=== PATIENT | female | born 1955 | race Caucasian/White ===

== ENCOUNTER 2023-05-11 12:23 | Outpatient (CLI) | payer OTHER, SELFPAY ==
--- NOTE | 2023-05-11 13:00 | CRLHL7_ITS ---
For Patients: As a result of the Century Cures Act, medical imaging exams and procedure reports are released immediately into your electronic medical record. You may view this report before your referring provider. If you have questions, please contact your health care provider. BILATERAL SCREENING MAMMOGRAM WITH COMPUTER-AIDED DETECTION AND TOMOSYNTHESIS TECHNIQUE: CC and MLO views were obtained. These mammographic images have been obtained using full-field digital technique. These mammographic images were interpreted with the benefit of computer-aided detection. Breast Tomosynthesis was used in this interpretation. COMPARISON FILM: 07/03/21, 10/29/18, 10/13/17. FINDINGS: The breasts are heterogeneously dense, which may obscure small masses IMPRESSION: There is no radiographic evidence for malignancy. ASSESSMENT: BI-RADS Category 2: Benign RECOMMENDATION: Routine screening mammogram in 1 year. A lay language report of this examination will be provided to the patient. Bernardo Rojas M.D. Diagnostic Radiologist [email or web address] TYE/idalia / be/Dictated by: Bernardo Rojas MD @ 05/12/2023 9:07:00 AM (Electronically Signed)
== END 2023-05-11 12:24 | disposition home or self-care (01) ==
LOC: MAMMO 12:24
PROVIDERS: PCP Family Medicine; Visit Provider Family Medicine
DX: Z12.31 Encounter for screening mammogram for malignant neoplasm of breast (principal); R92.2 Inconclusive mammogram
CPT/HCPCS: 77063; 77067

== ENCOUNTER 2023-12-29 10:44 | Outpatient (RCR) | payer MEDICARE, SELFPAY ==
--- NOTE | 2023-12-29 13:51 | PT.OPEX ---
PT [place] Outpatient Eval PT [facility] Outpatient Eval Start: 12/29/23 07:58 Freq: Status: Active Protocol: Document 12/29/23 07:58 AMS (Rec: 12/29/23 12:56 AMS [id number]) E-signed By Archana Luke, PT Physical Therapy Outpatient Evaluation Insurance Information Recert Due Date 03/23/24 Insurance Name Medicare B,are Medical Diagnosis Right knee osteoarthritis S/p right total knee arthroplasty 02/02/24, pre-op only Treating Diagnosis Aftercare following joint replacement Right knee pain/stiffness Muscle weakness Difficulty walking Referring MD Clark Subjective Subjective Mel is a new patient in my office today. She is a pleasant 68yr old female. Previous Dr. Miranda patient. Presents with pain in both knees, right greater than left . She reports intermittent pain over the last several years which has been progressive. There was a marked amount of pain at night . She describes pain on the inside part of both knees. She has tried a self-directed, home exercise program, Tylenol and anti- inflammatories. She had a cortisone injection in 2020. She has never had surgery on either knee. She does not have diabetes, does not smoke cigarettes and is not on blood thinners. -Dr. Clark, , confirmed by patient Pt presents one month prior to right total knee arthroplasty for pre-operative appointment . The date of her surgery changed. She does exercise/ stretching classes a few times a week through [employer]. She would like to get back to this. She does not use any gait aid at baseline. Localizes pain to the medial knee and increases with weightbearing activities. She will be doing her post-op physical therapy at [facility] in [place] (one block from her house). * home set up: please see pre- op note. Lives alone on 2nd floor of 2-level [facility] with 12 stairs to second floor, one railing on right. Kitchen on main level/laundry, all other necessities on 2nd floor . * equipment: able to borrow FWW after surgery. Does not use AD at baseline. * caregiver assistance: Neighbor, Joselito, lives downstairs on 1st floor and can stop in as needed. Daughter available to live with pt for a few days as needed and assist as needed. * pain level: see below * previous treatment: injection (some relief), takes Tylenol nightly for sleep, HEP * Goals: getting off floor without pain, returning to [employer] classes, walking * Functional limitations: walking, kneeling, sleeping, floor transfers, standing longer periods, stairs Pain Comments 5-8/10 pain at best/worst Date of Last Physician Visit 12/28/23 Date of Surgery (If applicable) 02/02/24 Current Work Status Retired Occupation Retired Precautions Treatment Precautions/Contraindications Possible osteoporosis (pt unsure), levothyroxine Weight Bearing Status Weight Bear as Tolerated Objective Other/Pertinent Objective Knee ROM L 0-0-130 R 0-0-125 Hip ROM WNL Strength: Hip flexors: R 4+/5 L 5/5 Knee extensors: R 4/5 with pain, L 5/5 Knee flexors: R 5/5 L 5/5 Gait/balance: Ambulates with normalized gait, non-antalgic. Lacks end-range active terminal knee extension bilaterally. Palpation/joint mobility: mild TTP over medial joint line/ just medial and lateral to tibial tuberosity along tibia. Swelling/observation: No swelling noted. Assessment Assessment/Impression Patient is a 68 year old female presenting for pre- operative visit prior to right total knee arthroplasty re- scheduled for 02/02/[address] Clark. Upon assessment, patient demonstrates mildly decreased knee ROM, decreased quad and hip strength, and altered gait. These impairments lead to difficulties with walking longer distances, kneeling, sleeping, floor transfers, standing longer periods, and stairs. Patient will be seen post operatively at [facility] in [place] to reassess impairments that will be addressed with skilled care. Mel would greatly benefit from skilled PT in order to progress strength, ROM, and ambulation post operatively in order to perform all household and work duties without significant difficulty or discomfort. Primary Functional Limitations walking, kneeling, sleeping, floor transfers, standing longer periods, stairs Plan of Care Rehabilitation Potential Good Physical Therapy Goals After pre-op visit: ? Patient will be independent with HEP ? Patient will verbalize knowledge of stair navigation and proper sequencing ? Patient will have knowledge on home adaptations and use of assistive devices post operatively ? Patient will have knowledge of edema management [facility] Coordination/Communication With Referral Source,Patient Caregiver Treatment Plan/Direct Interventions Gait Training,Joint Mobilization,Manual Therapy, Neuromuscular Re-ed, Therapeutic Activities, Therapeutic Exercises Frequency/Duration Frequency/duration: ? 1x visit prior to surgery on 02/02/24. Patient scheduled to start outpatient PT s/p TKA on 02/05/24 at [facility] in [place]. Has HEP to start with pre-operatively. Patient Will Be Discharged From Therapy Completion of LTG(s), Independent w/HEP, Independently Progressing Evaluation Billing Untimed Code Treatment Minutes 15 Complexity Low Certification Information Initial Certification Date 12/29/23 Ending Certification Date 03/23/24 Provider Signature Shows Agreement With POC & Medical Necessity Physician Signature & Date Requested Please Sign/Date Here Physician Comment/Change : Physician NPI Number #
== END 2024-04-27 23:59 | disposition home or self-care (01) ==
PROVIDERS: PCP Family Medicine; Visit Provider Orthopaedic Surgery
DX: M17.11 Unilateral primary osteoarthritis, right knee (principal); Z51.89 Encounter for other specified aftercare; M62.81 Muscle weakness (generalized); R26.2 Difficulty in walking, not elsewhere classified; M25.561 Pain in right knee; M25.661 Stiffness of right knee, not elsewhere classified; Z47.1 Aftercare following joint replacement surgery
CPT/HCPCS: 97110; 97161

== ENCOUNTER 2024-01-20 10:57 | Outpatient (CLI) | payer MEDICARE, SELFPAY | END 2024-01-20 10:58 | disposition home or self-care (01) | LOC: LKVREF 10:58 | PROVIDERS: PCP Family Medicine; Visit Provider Family Medicine | DX: Z01.818 Encounter for other preprocedural examination (principal) | CPT/HCPCS: 80048 ==

== ENCOUNTER 2024-02-02 08:01 | Day surgery (SDC) | payer MEDICARE, SELFPAY ==
[2024-02-02] VITALS (22 sets, daily range): BP systolic 97–147; BP diastolic 51–99; PULSE 58–90; RESP 16–18; TEMP 35.6–36.9; O2SAT 91–99; BMI 35.1
[2024-02-02] MEDS: LACTATED RINGERS 1000 ML 1,000 ML 100 ML IV ×2 (09:00→11:40)
[2024-02-02] MEDS: ACETAMINOPHEN 500 MG TABLET 1000 MG PO ×3 (09:01→23:30)
[2024-02-02] MEDS: OXYCODONE (CR) 10 MG TAB.ER.12H PO (09:02)
[2024-02-02] MEDS: CELECOXIB 200 MG CAPSULE PO (09:02)
[2024-02-02] MEDS: fentaNYL 100 MCG/2 ML inj IVP (10:02)
[2024-02-02] MEDS: MIDAZOLAM HCL 1 MG/ML inj IVP (10:02)
--- NOTE | 2024-02-02 10:08 | SUR.PREOP ---
TIME?OUT:?1000 PT/RN/MDA?VERIFICATION?OF?SURGICAL?SITE,?PROCEDURE,?AND?CONSENT OBTAINED?PRIOR?TO?INVASIVE?PROCEDURE.
--- NOTE | 2024-02-02 10:42 | W.PM.NB ---
Nerve Block Nerve Block Time Seen by Provider: 10:00 Date Seen: 02/02/24 Type of block requested by surgeon for post-operative analgesia: adductor canal Side: right Time out performed: Yes Verification of patient name: Yes Verification of date of : Yes Site marking: site marked Name of person performing procedure: ashley Continuous monitoring Was continuous monitoring of O2 sat, B/P, cardiac monitor technician, recorded every 15 minutes?: Yes Procedure Checklist: sterile prep, needles and gloves Ultrasound guided. Images saved: Yes Medications given in 5ml increments after negative aspiration: Ropivicaine %: 0.5 mL: 20 Needle gauge: 20 Decadron (mg): 10 Precedex (mcg): 25 Patient tolerated procedure well: Yes Block Charges Block Charge (with Pro Fee): Femoral Nerve Use of Ultrasound Machine for Block: Yes- US Guidance/pain block
--- NOTE | 2024-02-02 10:49 | P.NB_ITS ---
Nerve Block Nerve Block Time Seen by Provider: 10:00 Date Seen: 02/02/24 Type of block requested by surgeon for post-operative analgesia: geniculars Side: right Time out performed: Yes Verification of patient name: Yes Verification of date of : Yes Site marking: site marked Name of person performing procedure: ashley Continuous monitoring Was continuous monitoring of O2 sat, B/P, monitoring coordinator, recorded every 15 minutes?: Yes Procedure Checklist: sterile prep, needles and gloves Ultrasound guided. Images saved: No Medications given in 5ml increments after negative aspiration: Ropivicaine %: 0.5 mL: 12 Needle gauge: 25 Patient tolerated procedure well: Yes Block Charges Block Charge (with Pro Fee): Genicular Nerve Block Use of Ultrasound Machine for Block: No
[2024-02-02] MEDS: CEFAZOLIN 2 GM INJ IVP (11:39)
[2024-02-02] MEDS: TRANEXAMIC ACID 100 MG/ML INJ 1000 MG IV (11:40)
--- NOTE | 2024-02-02 12:53 | XR_ITS ---
Patient: NATHANIEL GLEN ARBOR Facility:?[facility] Patient ID:?[id number] Site Patient ID:?[id number]. Site :?[id number] Study:?XRay-Extremity Right 2V KNEE-02/02/2024 2:11:48 PM Ordering Physician:?DR. MARTE Final Report: INDICATION: Postop right knee was acute. TECHNIQUE: Two views of the right knee. FINDINGS: There is a right TKA. Components appear well seated. Adjacent postop soft tissue air. Dictated by Leonidas Tompkins MD @ 02/03/2024 10:08:55 AM Signed by:?Leonidas Tompkins MD @02/03/2024 10:08:55 AM (Electronic Signature)
--- NOTE | 2024-02-02 12:57 | PM.ORPRC ---
Procedure Note Date of procedure: 02/02/24 Procedure: PREOPERATIVE DIAGNOSIS: Right knee osteoarthritis POSTOPERATIVE DIAGNOSIS: Right knee osteoarthritis NAME OF OPERATION: Right total knee arthroplasty SURGEON: Olaf Clark MD MANAGER CLIENT: ROSANGELA Raymundo ANESTHESIA: Spinal ESTIMATED BLOOD LOSS: 0 mL COMPLICATIONS: None SPECIMENS: None DRAINS: None PREOPERATIVE ANTIBIOTICS: Ancef 2 grams, antibiotic impregnated cement IMPLANTS: 1. J&J Attune #6 posterior stabilized femur 2. # 5 revision CRS fixed-bearing tibia, with a 14 mm x 50 mm cemented stem 3. #6 posterior stabilized, 6 mm fixed-bearing polyethylene 4. 38 patella INDICATIONS: The patient is a 68-year-old with a longstanding history of severe, unrelenting right knee pain secondary to end-stage (grade IV) right knee osteoarthritis. Despite appropriate nonoperative management, including activity modification, anti-inflammatories, [id number] pain medication, bracing, physical therapy, and injections they continue to have pain and disability. Operative intervention was offered. The risks, benefits and expected outcomes were discussed in detail. These included but were not limited to: Infection, bleeding, injury to blood vessel or nerve, venous thromboembolism. All questions were answered to their satisfaction. Use of an office assistant receptionist was necessary throughout the case for patient positioning and safety, soft tissue retraction, and closure. A modifier 22 should be added to this case. Since the patient weighs 91 kg with a BMI of 35, we elected to use a stemmed component on the tibia to reduce the risk of aseptic loosening. This added more time and cost to the case. PROCEDURE: Spinal anesthesia was administered. The patient was placed supine on the operating table. The office assistant receptionist made sure the patient was positioned appropriately. The lower extremity was prepped and draped in the usual sterile fashion. The limb was exsanguinated with the Vasquez bandage. The pneumatic tourniquet was inflated to 300 mmHg. A standard anterior incision was made with the knee in flexion. Subcutaneous dissection was sharply taken through fascial layer #1. Full-thickness medial and lateral flaps were elevated. The office assistant receptionist retracted the soft tissues and protected them throughout the case. A standard subvastus approach was made. The patella was everted. The infrapatellar fat pad was preserved. The menisci and cruciate ligaments were sharply d?brided. Marginal osteophytes were d?brided with the rongeur. The drill was used to penetrate the femoral canal. The canal was aspirated and irrigated with pulse lavage. The intramedullary femoral guide was placed for a 5-degree valgus cut, removing 10 mm off the distal femur. The saw was used to make the cut. Whitesides line and the trans epicondylar axis were marked. The femoral sizing guide was pinned onto the distal femur. Three degrees of external rotation nicely parallels the transepicondylar axis. Pins were placed for posterior referencing. The four-in-one cutting guide was pinned onto the distal femur. The anterior, posterior, and chamfer cuts were made. The office assistant receptionist protected the collateral ligaments. The box cutting guide was pinned. The box cuts were made. The boxed trial was placed and was an excellent fit. Drill holes for the lugs were made. Attention was then turned to the proximal tibia. The extramedullary tibial guide was placed for a neutral varus/valgus cut with 5 degrees of posterior slope, removing 0 mm based off the medial tibial surface. The office assistant receptionist protected the collateral ligaments and the neurovascular bundle. The saw was used to make the cut. Trial components were placed. The knee was nicely balanced in both flexion and extension. The trial components were removed. The tray was placed in appropriate rotation, parallel to our tibial cutting pins. It was pinned by the office assistant receptionist and the drill x2 was used. The stemmed tibial trial was placed. The punch was used. The tray was removed. The punch was used again. A bone plug was placed in the femoral canal. Attention was then turned to the patella. Afognak patellar thickness was 21 mm. The lobster claw resection guide was used with the 7.5 mm pastora. The saw was used to make the cut. Drill holes were made by the office assistant receptionist. The trial was placed and was an excellent fit. Cancellous surfaces were irrigated with pulse lavage and thoroughly dried by the office assistant receptionist. We cemented the tibial component, then the femoral component. We impacted the 6 mm polyethylene onto the tibial tray. The knee was brought into full extension. We then cemented the patellar component. Excessive cement was removed. The cement was allowed to harden. The knee was taken through a range of motion and was found to be nicely balanced in both flexion and extension. The patella tracks centrally. The office assistant receptionist did a three minute dilute Betadine solution soak. The office assistant receptionist irrigated the wound with 3 liters of normal saline via pulse lavage. The office assistant receptionist reapproximated the extensor mechanism with #1 Vicryl in an interrupted [id number] fashion. The office assistant receptionist then ran the extensor mechanism with a #1 PDO Stratafix. The office assistant receptionist closed the subcutaneous tissues with a 3-0 Stratafix and the skin with a running 3-0 Stratafix in a subcuticular fashion. Glue was used to seal the skin. The office assistant receptionist placed a dry dressing, GABRIELA stocking, and Polar Care. Sponge and needle counts were correct x2. The patient tolerated the procedure well. There were no apparent complications. They were carefully transferred to the hospital bed and taken to the postanesthesia care unit in satisfactory condition. PLAN: The patient will be mobilized with physical therapy. Aspirin will be used for DVT prophylaxis. They will be discharged to home once medically appropriate.
--- NOTE | 2024-02-02 14:24 | PM.IMCN1 ---
Date of Consult Patient: [facility] Patient Consult date: 02/02/24 Requesting Physician: Orthopedics Primary Care Provider: Сергей Rao MD Consult Narrative Reason for consult: hypothyroidism Narrative: Mel Plascencia is a 68 year old female went in elective right total knee arthroplasty today by Dr. Clark for severe osteoarthritis. She has had no other surgeries in her life. She is doing well postoperatively and is just now starting to have a little bit of pain, 2/. Her only other medical problem is hypothyroidism for which she takes levothyroxine. She had an upper respiratory illness last week that is mostly resolved, but she does note some ongoing nasal congestion, not worse now than it was before surgery. Review of Systems Status of ROS: Reports: 10 or more systems reviewed and unremarkable except as noted in History and below PFSH [facility] Medical History (Updated 02/02/24 @ 15:39 by Ivette Mckenzie MD) Hypothyroidism ?E03.9 - Hypothyroidism, unspecified (ICD-10) Family history of heart disease ?Z82.49 - Family history of ischemic heart disease and other diseases of the circulatory system (ICD-10) Family history of breast cancer ?Z80.3 - Family history of malignant neoplasm of breast (ICD-10) Osteoarthritis of left knee ?M17.12 - Unilateral primary osteoarthritis, left knee (ICD-10) Osteoarthritis of right knee ?M17.11 - Unilateral primary osteoarthritis, right knee (ICD-10) Obesity ?E66.9 - Obesity, unspecified (ICD-10) Impingement syndrome of both shoulders ?M75.41 - Impingement syndrome of right shoulder (ICD-10) ?M75.42 - Impingement syndrome of left shoulder (ICD-10) Olecranon bursitis of left elbow ?M70.22 - Olecranon bursitis, left elbow (ICD-10) Surgical History (Updated 02/02/24 @ 15:41 by Ivette Mckenzie MD) S/P total knee arthroplasty ?Z96.659 - Presence of unspecified artificial knee joint (ICD-10) Family History (Updated 02/02/24 @ 15:37 by Ivette Mckenzie MD) Other Breast cancer Cardiovascular disease Colonic polyp Social History (Updated 02/02/24 @ 15:38 by Ivette Mckenzie MD) Narrative: She lives independently. 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 Her daughter, Linda, is with her today and is planning on being there to care for Mel at home when she is discharged tomorrow. Mel is a lifelong nonsmoker, denies alcohol or recreational drug use. Smoking Status: Never smoker Do you use any of these nicotine containing products: None Second hand tobacco smoke exposure: No Little interest or pleasure in doing things: not at all Feeling down, depressed, or hopeless: not at all Meds Home Medications and Allergies Home Medications Medication Instructions Recorded Confirmed Type levothyroxine 25 mcg tablet 25 mcg PO DAILY 02/02/24 02/02/24 History Allergies Allergy/AdvReac Type Severity Reaction Status Date / Time No Known Allergies Allergy Unknown Unknown Verified 02/02/24 08:53 Exam Narrative: Exam Narrative: General: No acute distress. Awake alert oriented x3. HEENT: Normocephalic atraumatic, pupils equally round and reactive to light and accommodation. Oropharynx clear. Mucous membranes are moist. Cardiovascular: Regular rate and rhythm. No murmurs, gallops, or rubs. Chest: No increased work of breathing. Clear to auscultation bilaterally. No crackles or wheezes. Abdomen: Bowel sounds present. Soft, nondistended, nontender. No hepatosplenomegaly or masses. Extremities: Right knee bandage is clean, dry, and intact. No edema, no cyanosis or clubbing. Skin: No jaundice, no pallor, no rashes on visible skin. Const: Vital Signs, click to edit/add: Vital Signs - 24 hr 02/02/24 08:48 02/02/24 10:00 02/02/24 10:15 Temperature 98.5 F 98.2 F Pulse Rate 78 70 63 Respiratory Rate 16 16 16 Blood Pressure 147/78 H 127/99 H 126/75 Pulse Oximetry 96 99 99 Oxygen Delivery Me thod Nasal Cannula Nasal Cannula Oxygen Flow Rate 2 2 02/02/24 10:30 02/02/24 13:37 02/02/24 13:40 Temperature 97.8 F Pulse Rate 58 L 78 75 Respiratory Rate 16 16 16 Blood Pressure 100/73 112/57 L 103/60 Pulse Oximetry 99 93 93 Oxygen Delivery Me thod Nasal Cannula Room Air Room Air Oxygen Flow Rate 2 2 02/02/24 13:45 02/02/24 13:50 02/02/24 13:55 Temperature Pulse Rate 76 73 72 Respiratory Rate 16 16 16 Blood Pressure 97/67 107/66 110/63 Pulse Oximetry 97 96 97 Oxygen Delivery Me thod Room Air Room Air Room Air Oxygen Flow Rate 2 02/02/24 14:00 02/02/24 14:05 Temperature 97.3 F L Pulse Rate 75 74 Respiratory Rate 16 16 Blood Pressure 112/57 L 109/62 Pulse Oximetry 97 97 Oxygen Delivery Me thod Room Air Room Air Oxygen Flow Rate Assessment and Plan Assessment and plan (1) S/P total knee arthroplasty: Problem comment: - 02/02/2024 Dr. Clark - routine postop cares - VTE prophylaxis with twice a day aspirin, Last's hose, and SCDs. Status: Acute (2) Osteoarthritis of right knee: Status: Chronic (3) Hypothyroidism: Problem comment: - continue home dosing of levothyroxine. She skipped her dose this morning, not sure if she should take before surgery. She would like to restart it tomorrow morning rather than taking a dose today. I will write to restart this medication tomorrow morning. Status: Chronic
[2024-02-02] MEDS: HYDROmorphone 0.5 mg/0.5 ml inj IVP (14:47)
[2024-02-02] MEDS: CEFAZOLIN 2 GM in 0.9 % SODIUM CHLORIDE Mini-bag 100 ML IVPB (18:15)
--- NOTE | 2024-02-02 19:25 | PC.NURSE ---
Pt arrived to floor from surgery at 1412; Pt?s VSS; Pt on RA. Pt had complaints of pain ranging from 1-4; see EMAR for intervention. Pt?s dressing is dry and intact. ?Family at bedside most of shift.
[2024-02-02] MEDS: OXYCODONE 5 MG TABLET PO ×2 (21:13→23:30)
[2024-02-02] MEDS: ASPIRIN 81 MG TABLET EC PO (21:15)
[2024-02-02] MEDS: SENNOSIDES 1 TAB TABLET 2 TAB PO (21:15)
[2024-02-03 03:00] VITALS: BP 118/74; PULSE 76; RESP 18; TEMP 36.6; O2SAT 96
[2024-02-03] MEDS: CEFAZOLIN 2 GM in 0.9 % SODIUM CHLORIDE Mini-bag 100 ML IVPB (03:48)
--- NOTE | 2024-02-03 06:22 | PC.NURSE ---
Shift note: Pt is doing with pain and ambulation with A, walker and GB. Pain has been rated between 4 and 6 and only requested for pain medication at 2300. Dressing appeared clean and dry. Vitally stable.
[2024-02-03] MEDS: ACETAMINOPHEN 500 MG TABLET 1000 MG PO (06:30)
[2024-02-03] MEDS: LEVOTHYROXINE 25 MCG TABLET PO (06:30)
[2024-02-03 06:39] LABS: Basophils Percent Auto 0.1 % (0.0-3.0); Hematocrit 38.5 % (33.0-51.0); Hemoglobin* 12.7 gm/dL (12.0-16.0); Immature Granulocytes Pct Auto 0.2 %; Lymphocytes Percent Auto 7.3 % (20-44); Mean Corpuscular HGB Conc 33 gm/dL (32-36); Mean Corpuscular Hemoglobin 31 pg (26-34); Mean Corpuscular Volume 92 fL (80-100); Monocytes Percent Auto 2.9 % (0.0-11.0); Neutrophils Percent Auto 89.5 % (42.0-72.0); Platelet Count* 260 K/uL (140-440); RDW Coefficient of Variation % 12.1 % (11.5-15.5); Red Blood Count 4.17 m/uL (4.00-5.20); White Blood Count* 16.14 K/uL (4.50-11.00)
[2024-02-03 06:49] LABS: Slide Review Reflex No
[2024-02-03 07:02] LABS: Potassium* 4.6 mmol/L (3.6-5.1); Sodium* 138 mmol/L (135-149)
[2024-02-03 07:05] LABS: Creatinine* 0.8 mg/dL (0.5-1.5); Est. Creatinine Clearance* 44.54; Estimated Glomerular Filt Rate 80 ml/min; INR 0.97 (0.91-1.10); Prothrombin Time 13.5 Seconds
[2024-02-03 07:06] LABS: Blood Urea Nitrogen* 26 mg/dL (7-30)
[2024-02-03 07:59] VITALS: BP 119/57; PULSE 75; RESP 18; TEMP 37; O2SAT 95
--- NOTE | 2024-02-03 08:32 | PM.ORPN ---
Subjective Subjective Time Seen by Provider: 07:00 Date Seen: 02/03/24 Principal diagnosis: Status post right knee replacement Interval history: The patient is comfortable this morning. She will discharge to home today. Ortho Exam Narrative Exam Narrative: Alert and oriented x3. Patient is in no acute distress. Converses without labored breathing. Hearing is grossly intact. Ambulates with a walker. Examination of the right knee shows the dressing is intact. No erythema or warmth or sign of infection. Minimal effusion. Bilateral calves are soft and nontender. CMS intact right lower extremity. Good quad strength Const Vital Signs, click to edit/add: Vital Signs - 24 hr 02/02/24 08:48 02/02/24 10:00 02/02/24 10:15 Temperature 98.5 F 98.2 F Pulse Rate 78 70 63 Pulse Rate [Left Pulse Oximeter] Respiratory Rate 16 16 16 Blood Pressure 147/78 H 127/99 H 126/75 Blood Pressure [Right Arm] Pulse Oximetry 96 99 99 Oxygen Delivery Method Nasal Cannula Nasal Cannula Oxygen Flow Rate 2 2 02/02/24 10:30 02/02/24 13:37 02/02/24 13:40 Temperature 97.8 F Pulse Rate 58 L 78 75 Pulse Rate [Left Pulse Oximeter] Respiratory Rate 16 16 16 Blood Pressure 100/73 112/57 L 103/60 Blood Pressure [Right Arm] Pulse Oximetry 99 93 93 Oxygen Delivery Method Nasal Cannula Room Air Room Air Oxygen Flow Rate 2 2 02/02/24 13:45 02/02/24 13:50 02/02/24 13:55 Temperature Pulse Rate 76 73 72 Pulse Rate [Left Pulse Oximeter] Respiratory Rate 16 16 16 Blood Pressure 97/67 107/66 110/63 Blood Pressure [Right Arm] Pulse Oximetry 97 96 97 Oxygen Delivery Method Room Air Room Air Room Air Oxygen Flow Rate 2 02/02/24 14:00 02/02/24 14:05 02/02/24 14:12 Temperature 97.3 F L 96.1 F L Pulse Rate 75 74 72 Pulse Rate [Left Pulse Oximeter] Respiratory Rate 16 16 16 Blood Pressure 112/57 L 109/62 119/78 Blood Pressure [Right Arm] Pulse Oximetry 97 97 96 Oxygen Delivery Method Room Air Room Air Room Air Oxygen Flow Rate 0 02/02/24 14:15 02/02/24 14:30 02/02/24 14:45 Temperature 96.4 F L 96.4 F L 96.5 F L Pulse Rate 74 70 73 Pulse Rate [Left Pulse Oximeter] Respiratory Rate 16 16 16 Blood Pressure 125/61 116/68 114/51 L Blood Pressure [Right Arm] Pulse Oximetry 96 94 95 Oxygen Delivery Method Room Air Room Air Room Air Oxygen Flow Rate 0 0 0 02/02/24 15:00 02/02/24 15:30 02/02/24 16:00 Temperature 96.5 F L 97.0 F L 97.1 F L Pulse Rate 74 74 83 Pulse Rate [Left Pulse Oximeter] Respiratory Rate 18 16 18 Blood Pressure 114/59 L 126/72 126/72 Blood Pressure [Right Arm] Pulse Oximetry 91 98 97 Oxygen Delivery Method Room Air Room Air Room Air Oxygen Flow Rate 0 0 0 02/02/24 17:00 02/02/24 18:00 02/02/24 19:00 Temperature 96.8 F L 97.3 F L 97.1 F L Pulse Rate 77 90 75 Pulse Rate [Left Pulse Oximeter] Respiratory Rate 16 16 16 Blood Pressure 126/86 125/64 133/89 Blood Pressure [Right Arm] Pulse Oximetry 98 96 96 Oxygen Delivery Method Room Air Room Air Room Air Oxygen Flow Rate 0 0 0 02/02/24 23:36 02/03/24 03:00 02/03/24 07:59 Temperature 97.6 F 97.8 F 98.6 F Pulse Rate Pulse Rate [Left Pulse Oximeter] 85 76 75 Respiratory Rate 18 18 18 Blood Pressure Blood Pressure [Right Arm] 137/76 118/74 119/57 L Pulse Oximetry 96 96 95 Oxygen Delivery Method Room Air Room Air Room Air Oxygen Flow Rate 0 Assessment and Plan Assessment and plan (1) Status post right knee replacement: Problem details: 02/02/2024 Status: Acute Assessment and Plan: Plan for discharge is today to home if they meet discharge criteria. DVT prophylaxis includes aspirin 81 mg twice daily x1 month, Last stockings x1 month may remove for 1 hr per day, frequent ambulation Remove dressing in 1 week. Observe wound and phone Orthopedics with any questions or concerns Return to clinic in 1 week for a wound check Return to clinic in 6 weeks with surgeon Minimize narcotic use. Wean off and discontinue soon as possible. Activities as tolerated. No strenuous activity. Outpatient physical therapy as scheduled. Ice and elevate the operative extremity. No restriction on ice.
[2024-02-03] MEDS: ASPIRIN 81 MG TABLET EC PO (08:37)
[2024-02-03] MEDS: SENNOSIDES 1 TAB TABLET 2 TAB PO (08:37)
[2024-02-03] MEDS: OXYCODONE 5 MG TABLET PO (08:37)
--- NOTE | 2024-02-03 11:02 | PC.NURSE ---
Pt alert and oriented. Pt pleasant and cooperative. Pt had no complaints of pain. Pt's dressing dry and intact. Pt SBA with walker and gait belt. Pt's IV removed; catheter intact. Discharge instructions done with Pt and daughter.
--- NOTE | 2024-02-22 13:20 | W.ANESCHARGE ---
Anesthesia Charges Start Date/Time Anesthesia Start Date: 02/02/24 Anesthesia Start Time: 11:23 Stop Date/Time Anesthesia Stop Date: 02/02/24 Anesthesia Stop Time: 13:40
== END 2024-02-03 10:45 | disposition home or self-care (01) ==
LOC: OR 08:01 → MEDSURG 08:05
PROVIDERS: PCP Family Medicine; Visit Provider Orthopaedic Surgery
PROC: (CPT 27447; principal; 2024-02-02 10:00)
DX: M17.11 Unilateral primary osteoarthritis, right knee (principal); G89.18 Other acute postprocedural pain; E03.9 Hypothyroidism, unspecified; E66.9 Obesity, unspecified; Z68.35 Body mass index [BMI] 35.0-35.9, adult
CPT/HCPCS: 27447; 01402; 36415; 64447; 64454; 73560; 76942; 82565; 84132; 84295; 84520; 85025; 85610; 97110; 97116; 97161; 97165; 97530; A9270; C1776; J0690; J1100; J1170; J2250; J2371; J2405; J2704; J2795; J3010; J7120

== ENCOUNTER 2024-12-06 15:58 | Outpatient (CLI) | payer MEDICARE, SELFPAY ==
--- NOTE | 2024-12-06 16:40 | CRLHL7_ITS ---
For Patients: As a result of the Cures Act, medical imaging exams and procedure reports are released immediately into your electronic medical record. You may view this report before your referring provider. If you have questions, please contact your health care provider. BILATERAL SCREENING MAMMOGRAM WITH COMPUTER-AIDED DETECTION AND TOMOSYNTHESIS TECHNIQUE: CC and MLO views were obtained. These mammographic images have been obtained using full-field digital technique. These mammographic images were interpreted with the benefit of computer-aided detection. Breast Tomosynthesis was used in this interpretation. COMPARISON FILM: 05/11/23, 07/03/21, 10/29/18. FINDINGS: There are scattered areas of fibroglandular density IMPRESSION: There is no radiographic evidence for malignancy. ASSESSMENT: BI-RADS Category 1: Negative RECOMMENDATION: Routine screening mammogram in 1 year. A lay language report of this examination will be provided to the patient. Bernardo Rojas M.D. Diagnostic Radiologist [email or web address] m Transcribed: 3:00 p.mGerardo salguero/Dictated by: Bernardo Rojas MD @ 12/07/2024 9:34:00 AM (Electronically Signed)
== END 2024-12-06 15:59 | disposition home or self-care (01) ==
LOC: MAMMO 15:59
PROVIDERS: PCP Family Medicine; Visit Provider Family Medicine
DX: Z12.31 Encounter for screening mammogram for malignant neoplasm of breast (principal)
CPT/HCPCS: 77063; 77067

== ENCOUNTER 2025-01-25 09:35 | Outpatient (CLI) | payer MEDICARE, SELFPAY | END 2025-01-25 09:36 | disposition home or self-care (01) | PROVIDERS: PCP Family Medicine; Visit Provider Family Medicine | DX: E03.9 Hypothyroidism, unspecified (principal); E66.9 Obesity, unspecified; Z13.0 Encounter for screening for diseases of the blood and blood-forming organs and certain disorders involving the immune mechanism; Z13.1 Encounter for screening for diabetes mellitus | CPT/HCPCS: 80048; 84439; 84443 ==

== ENCOUNTER 2025-02-08 10:13 | Outpatient (CLI) | payer MEDICARE, SELFPAY | END 2025-02-08 10:14 | disposition home or self-care (01) | LOC: LKVREF 10:13 | PROVIDERS: PCP Family Medicine; Visit Provider Family Medicine | DX: Z01.818 Encounter for other preprocedural examination (principal) | CPT/HCPCS: 80048 ==

== ENCOUNTER 2025-02-21 06:13 | Day surgery (SDC) | payer MEDICARE, SELFPAY ==
[2025-02-21] VITALS (21 sets, daily range): BP systolic 99–139; BP diastolic 60–101; PULSE 51–77; RESP 12–16; TEMP 35.9–36.7; O2SAT 93–100; BMI 37.4
[2025-02-21] MEDS: SODIUM CHLORIDE 0.9 % (FLUSH) 10 ML SYRINGE IVF (06:45)
[2025-02-21] MEDS: LACTATED RINGERS 1000 ML 1,000 ML 100 ML IV ×3 (06:45→11:28)
[2025-02-21] MEDS: ACETAMINOPHEN 500 MG TABLET 1000 MG PO (06:54)
[2025-02-21] MEDS: CELECOXIB 200 MG CAPSULE PO (06:54)
[2025-02-21] MEDS: OXYCODONE (CR) 10 MG TAB.ER.12H PO (06:54)
[2025-02-21] MEDS: fentaNYL 100 MCG/2 ML inj IVP (07:17)
[2025-02-21] MEDS: MIDAZOLAM HCL 1 MG/ML inj IVP (07:17)
--- NOTE | 2025-02-21 07:18 | SUR.PREOP ---
TIME?OUT:?0716 PT/RN/MDA?VERIFICATION?OF?SURGICAL?SITE,?PROCEDURE,?AND?CONSENT OBTAINED?PRIOR?TO?INVASIVE?PROCEDURE. all in agreement
[2025-02-21] MEDS: CEFAZOLIN 1 GM inj IVP (07:35)
[2025-02-21] MEDS: TRANEXAMIC ACID 100 MG/ML INJ 1000 MG IV (07:40)
--- NOTE | 2025-02-21 07:56 | P.NB_ITS ---
Nerve Block Nerve Block Time Seen by Provider: 07:20 Date Seen: 02/21/25 Type of block requested by surgeon for post-operative analgesia: adductor canal Side: left Time out performed: Yes Verification of patient name: Yes Verification of date of : Yes Site marking: site marked Name of person performing procedure: North Continuous monitoring Was continuous monitoring of O2 sat, B/P, youth nutritional monitor, recorded every 15 minutes?: Yes Procedure Checklist: sterile prep, needles and gloves Ultrasound guided. Images saved: Yes Medications given in 5ml increments after negative aspiration: Marcaine %: 0.25 mL: 15 Needle gauge: 20 Precedex (mcg): 25 Patient tolerated procedure well: Yes Block Charges Block Charge (with Pro Fee): Femoral Nerve Use of Ultrasound Machine for Block: Yes- US Guidance/pain block
--- NOTE | 2025-02-21 07:57 | P.NB_ITS ---
Nerve Block Nerve Block Time Seen by Provider: 07:20 Date Seen: 02/21/25 Type of block requested by surgeon for post-operative analgesia: geniculars Side: left Time out performed: Yes Verification of patient name: Yes Verification of date of : Yes Site marking: site marked Name of person performing procedure: North Continuous monitoring Was continuous monitoring of O2 sat, B/P, electronic device monitor, recorded every 15 minutes?: Yes Procedure Checklist: sterile prep, needles and gloves Ultrasound guided. Images saved: Yes Medications given in 5ml increments after negative aspiration: Marcaine %: 0.25 mL: 9 Needle gauge: 25 Patient tolerated procedure well: Yes Block Charges Block Charge (with Pro Fee): Genicular Nerve Block
--- NOTE | 2025-02-21 08:49 | CRLHL7_ITS ---
For Patients: As a result of the Century Cures Act, medical imaging exams and procedure reports are released immediately into your electronic medical record. You may view this report before your referring provider. If you have questions, please contact your health care provider. Indication: LT KNEE POSTOP TKA Technique: Two views left knee Findings/Impression: Hardware from a left total knee arthroplasty is in satisfactory position. Bone alignment is normal. No sign of acute fracture. Postop changes are within normal limits. Dictated by Bernardo Rojas MD @ 02/21/2025 10:55:06 AM (Electronically Signed)
--- NOTE | 2025-02-21 08:50 | P.ORPRC_ITS ---
Procedure Note Date of procedure: 02/21/25 Procedure: PREOPERATIVE DIAGNOSIS: Left knee osteoarthritis POSTOPERATIVE DIAGNOSIS: Left knee osteoarthritis NAME OF OPERATION: Left total knee arthroplasty SURGEON: Olaf Clark MD FLAVORING OIL FILTERER: ROSANGELA Raymundo Elizabeth Oss, MS4 ANESTHESIA: Spinal ESTIMATED BLOOD LOSS: 0 mL COMPLICATIONS: None SPECIMENS: None DRAINS: None PREOPERATIVE ANTIBIOTICS: Ancef 2 grams, antibiotic impregnated cement IMPLANTS: 1. J&J Attune # 5 posterior stabilized femur 2. # 5 revision CRS fixed-bearing tibia, 14 mm x 50 mm cemented stem 3. # 5 posterior stabilized, 5 mm fixed-bearing polyethylene 4. 38 patella INDICATIONS: The patient is a 69-year-old with a longstanding history of severe, unrelenting left knee pain secondary to end-stage (grade IV) left knee osteoarthritis. Despite appropriate nonoperative management, including activity modification, anti-inflammatories, [id number] pain medication, bracing, physical therapy, and injections they continue to have pain and disability. Operative intervention was offered. The risks, benefits and expected outcomes were discussed in detail. These included but were not limited to: Infection, bleeding, injury to blood vessel or nerve, venous thromboembolism. All questions were answered to their satisfaction. Use of an dental hygiene administrative assistant was necessary throughout the case for patient positioning and safety, soft tissue retraction, and closure. A modifier 22 should be added to the case. The patient's weight of 96 kg with a BMI of 37 increases her risk of aseptic loosening. In order to attempt to reduce this risk a stemmed tibial component was placed. This added time and cost to complete the case. PROCEDURE: Spinal anesthesia was administered. The patient was placed supine on the operating table. The dental hygiene administrative assistant made sure the patient was positioned appropriately. The lower extremity was prepped and draped in the usual sterile fashion. The limb was exsanguinated with the Vasquez bandage. The pneumatic tourniquet was inflated to 300 mmHg. A standard anterior incision was made with the knee in flexion. Subcutaneous dissection was sharply taken through fascial layer #1. Full-thickness medial and lateral flaps were elevated. The dental hygiene administrative assistant retracted the soft tissues and protected them throughout the case. A standard subvastus approach was made. The patella was subluxed. The infrapatellar fat pad was preserved. The menisci and cruciate ligaments were sharply d?brided. Marginal osteophytes were d?brided with the rongeur. The drill was used to penetrate the femoral canal. The canal was aspirated and irrigated with pulse lavage. The intramedullary femoral guide was placed for a 5-degree valgus cut, removing 10 mm off the distal femur. The saw was used to make the cut. Whitesides line and the trans epicondylar axis were marked. The femoral sizing guide was pinned onto the distal femur. Three degrees of external rotation nicely parallels the transepicondylar axis. Pins were placed for posterior referencing. The four-in-one cutting guide was pinned onto the distal femur. The anterior, posterior, and chamfer cuts were made. The dental hygiene administrative assistant protected the collateral ligaments. The box cutting guide was pinned. The box cuts were made. The boxed trial was placed and was an excellent fit. Drill holes for the lugs were made. Attention was then turned to the proximal tibia. The intramedullary tibial guide was placed for a neutral varus/valgus cut with 5 degrees of posterior slope, removing 0 mm based off the medial tibial surface. The dental hygiene administrative assistant protected the collateral ligaments and the neurovascular bundle. The saw was used to make the cut. Trial components were placed. The knee was nicely balanced in both flexion and extension. The trial components were removed. The tray was placed in appropriate rotation, parallel to our tibial cutting pins. It was pinned by the dental hygiene administrative assistant and the drill x2 was used. The stemmed tibial trial was placed. The punch was used. The tray was removed. The punch was used again. Attention was then turned to the patella. [place] patellar thickness was 21 mm. The lobster claw resection guide was used with the 7.5 mm pastora. The saw was used to make the cut. Drill holes were made by the dental hygiene administrative assistant. The trial was placed and was an excellent fit. Cancellous surfaces were irrigated with pulse lavage and thoroughly dried by the dental hygiene administrative assistant. We cemented the tibial component, then the femoral component. We impacted the 5 mm polyethylene onto the tibial tray. The knee was brought into full extension. We then cemented the patellar component. Excessive cement was removed. The cement was allowed to harden. The knee was taken through a range of motion and was found to be nicely balanced in both flexion and extension. The patella tracks centrally. The dental hygiene administrative assistant did a three minute dilute Betadine solution soak. The dental hygiene administrative assistant irrigated the wound with 3 liters of normal saline via pulse lavage. The dental hygiene administrative assistant reapproximated the extensor mechanism with #1 Vicryl in an interrupted [id number] fashion. The dental hygiene administrative assistant then ran the extensor mechanism with a #1 PDO Stratafix. The dental hygiene administrative assistant closed the subcutaneous tissues with a 3-0 Stratafix and the skin with a running 3-0 Stratafix in a subcuticular fashion. Glue was used to seal the skin. The dental hygiene administrative assistant placed a dry dressing. Sponge and needle counts were correct x2. The patient tolerated the procedure well. There were no apparent complications. They were carefully transferred to the hospital bed and taken to the postanesthesia care unit in satisfactory condition. PLAN: The patient will be mobilized with physical therapy. Aspirin will be used for DVT prophylaxis. They will be discharged to home once medically appropriate.
--- NOTE | 2025-02-21 09:21 | P.ANES_ITS ---
Anesthesia Charges Start Date/Time Anesthesia Start Date: 02/21/25 Anesthesia Start Time: 07:26 Stop Date/Time Anesthesia Stop Date: 02/21/25 Anesthesia Stop Time: 09:20 Coding CPT Codes CPT Codes: ANESTH KNEE ARTHROPLASTY - 17556 ([id number]) P2 - PATIENT W/MILD SYST DISEASE, QK - QM CONSULTANT 2-4 CNCRNT ANES PROC, QX - LOGISTICS CLERK SVC W/ MD MED DIRECTION
--- NOTE | 2025-02-21 09:21 | W.ANESCHARGE ---
Anesthesia Charges Start Date/Time Anesthesia Start Date: 02/21/25 Anesthesia Start Time: 07:26 Stop Date/Time Anesthesia Stop Date: 02/21/25 Anesthesia Stop Time: 09:20 Coding CPT Codes CPT Codes: ANESTH KNEE ARTHROPLASTY - 71621 ([id number]) P2 - PATIENT W/MILD SYST DISEASE, QK - ADZING AND BORING MACHINE FEEDER 2-4 CNCRNT ANES PROC, QX - BINGO WORKER SVC W/ MD MED DIRECTION
--- NOTE | 2025-02-21 09:26 | P.ANES_ITS ---
Anesthesia Charges Start Date/Time Anesthesia Start Date: 02/21/25 Anesthesia Start Time: 07:26 Stop Date/Time Anesthesia Stop Date: 02/21/25 Anesthesia Stop Time: 09:20 Coding CPT Codes CPT Codes: ANESTH KNEE ARTHROPLASTY - 59531 ([id number]) QK - WASTEWATER TREATMENT SUPERVISOR 2-4 CNCRNT ANES PROC, QX - ASSISTANT PRINCIPAL SVC W/ MD MED DIRECTION, P2 - PATIENT W/MILD SYST DISEASE
--- NOTE | 2025-02-21 09:26 | W.ANESCHARGE ---
Anesthesia Charges Start Date/Time Anesthesia Start Date: 02/21/25 Anesthesia Start Time: 07:26 Stop Date/Time Anesthesia Stop Date: 02/21/25 Anesthesia Stop Time: 09:20 Coding CPT Codes CPT Codes: ANESTH KNEE ARTHROPLASTY - 33087 ([id number]) QK - POWDER LINE REPAIRER 2-4 CNCRNT ANES PROC, QX - MEDICAL SCHEDULER SVC W/ MD MED DIRECTION, P2 - PATIENT W/MILD SYST DISEASE
[2025-02-21] MEDS: fentaNYL 100 MCG/2 ML inj 50 MCG IVP (09:44)
--- NOTE | 2025-02-21 11:28 | SUR.PHASEII ---
Pt reports pain in knee, but tolerable at this time. Declines narcotic pain medications. Tolerating juice and water. Pt decline food. Pt states I'm feeling tired. oxygen saturations dropped to 84% as pt was resting. Applied 2L oxygen via NC. pulse ox reading 93-94% as pt is resting. Daughter in room .
[2025-02-21] MEDS: IBUPROFEN 400 MG TABLET PO (13:20)
--- NOTE | 2025-02-21 13:42 | SUR.PHASEII ---
Pt tried to void on commode. pt's underwear were wet, pt states I do feel like it's running out as I stand up. Reviewed d/c instructions with pt and daughter, all questions answered. VO from Dr. Clark okaying pt to take Ibuprofen 400-600mg every 6 hours at home, Tylenol 1,000mg every 6 hours.
== END 2025-02-21 14:26 | disposition home or self-care (01) ==
LOC: OR 06:16
PROVIDERS: PCP Family Medicine; Visit Provider Orthopaedic Surgery
PROC: (CPT 27447; principal; 2025-02-21 07:30)
DX: M17.12 Unilateral primary osteoarthritis, left knee (principal); G89.18 Other acute postprocedural pain; E66.01 Morbid (severe) obesity due to excess calories; Z68.38 Body mass index [BMI] 38.0-38.9, adult; E03.9 Hypothyroidism, unspecified
CPT/HCPCS: 27447; 01402; 64447; 64454; 73560; 76942; 97110; 97116; 97161; A9270; C1776; J0665; J0690; J1100; J2250; J2405; J2704; J3010; J7120